=== PATIENT | female | born 1980 | race African-American/Black ===

== ENCOUNTER 2017-06-07 19:52 | Emergency (ER) | payer OTHER ==
[~2017-06-07] VITALS: Ht 167.6 cm; Wt 54.4 kg
[2017-06-07 19:52] VITALS: BP 124/78
== END 2017-06-07 20:38 | disposition home or self-care (01) ==
LOC: ER 19:57
DX: Z76.0 Encounter for issue of repeat prescription (principal); K08.89 Other specified disorders of teeth and supporting structures
CPT/HCPCS: 99283; A4606; Z7610